=== PATIENT | female | born 1965 | race Caucasian/White ===

== ENCOUNTER → 2016-06-10 12:05 | Outpatient (CLI) | payer BC ==
[2013-11-05 08:38] VITALS: BMI 34.4
[~2016-06-10 12:05] MED LIST: BENICAR HCT 20-1 TA1 PO; LEXAPRO20 MG PO; PLAVIX75 MG PO
== END | disposition home or self-care (01) ==
LOC: D.RAD 12:05
DX: R06.02 Shortness of breath (principal)